=== PATIENT | male | born 1975 | race Caucasian/White ===

== ENCOUNTER 2025-08-31 11:51 | Outpatient (CLI) | payer BC | END 2025-08-31 11:52 | disposition home or self-care (01) | LOC: CSHRAD 11:51 | PROVIDERS: ATTEND Family Medicine Sports Medicine | DX: M54.50 Low back pain, unspecified (principal); M47.816 Spondylosis without myelopathy or radiculopathy, lumbar region; M47.817 Spondylosis without myelopathy or radiculopathy, lumbosacral region; M48.07 Spinal stenosis, lumbosacral region | CPT/HCPCS: 72100 ==